=== PATIENT | male | born 1970 | race Caucasian/White ===

== ENCOUNTER 2016-02-12 11:55 | Emergency (ER) | payer BC ==
[2016-02-12 12:09] VITALS: TEMP 98.2; BMI 43.9
[2016-02-12 12:21] LABS: AUTOMATED BASOPHIL 0.5 % (0-2); AUTOMATED LYMPH 18.2 % (17-44); AUTOMATED MONOCYTE 8.3 % (3-10); MPV 7.9 fL (7.4-10.4)
[2016-02-12 12:31] LABS: BLOOD UREA NITROGEN 18 MG/DL (9-20); CALCULATED OSMOLALITY 275 MOs/Kg (270-290); CHLORIDE 104 mEq/L (98-107); GLUCOSE 93 MG/DL (70-99); SODIUM LEVEL 142 mEq/L (137-146); TOTAL PROTEIN 7.2 G/DL (6.3-8.2)
[2016-02-12 12:36] LABS: PARTIAL THROMB. TIME 25.9 SEC (22-35); PT-INR 1.1
--- NOTE | 2016-02-12 14:09 | DIRPT ---
CLINICAL DATA: Midsternal chest pain. EXAM: PORTABLE CHEST 1 VIEW COMPARISON: Chest radiograph 08/28/2012. FINDINGS: Monitoring leads overlie the patient. Stable enlarged cardiac and mediastinal contours. No consolidative pulmonary opacities. No pleural effusion or pneumothorax. Regional skeleton is unremarkable. IMPRESSION: No acute cardiopulmonary process. Electronically Signed By: Tylor Montesinos M.D. On: 02/12/2016 14:06
--- NOTE | 2016-02-12 14:18 | EDPRACDOC ---
- General Information Chief Complaint: Chest Pain Stated Complaint: CHEST PRESSURE Time Seen by Provider: 02/12/16 13:45 Information Source: Patient Mode of Arrival: Car Home Medications: Home Medications CITALOPRAM (anti-depressant) [Celexa] 40 mg PO DAILY 08/28/12 Cyclobenzaprine HCl [Flexeril] 10 mg PO TID #21 tab 02/12/16 Meloxicam [Mobic] 7.5 mg PO BID #20 tab 02/12/16 Allergies/Adverse Reactions: Allergies Allergy/AdvReac Type Severity Reaction Status Date / Time No Known Allergies Allergy Verified 02/12/16 12:08 - History of Present Illness Onset: 1 HOUR HPI: PT PRESENTS TODAY WITH SUDDEN ONSET OF RIGHT SIDED CHEST PAIN THAT RADIATES TO MID STERNUM 4 HOURS AGO. PT STATES HE WAS "JUST SITTING THERE" WHEN THE PAIN OCCURRED. STATES PAIN IS INTERMITTENT, SHARP/STABBING, WORSE WITH MOVEMENT, RADIATES TO STERNAL AREA. PT FOLLOWS A PCP AND HAS YEARLY CHECK UPS, INCLUDING BLOOD WORK. PT TAKE NO MEDICATIONS, DOES NOT SMOKE/DRINK AND STATES HE "THINKS FATHER HAD A SMALL HEART ATTACK AT 65", BUT NO OTHER SIGNIFICANT FAMILY HISTORY. PT DENIES PAIN AT THIS TIME AND DOES NOT APPEAR TO BE IN ANY DISTRESS. Chest Pain Location: Reports: Right Chest Pain Radiation: Reports: Other (STERNUM) Symptoms Occur: Reports: Suddenly, At Rest Cardiac Risk Factors: Reports: Family History Cardiac History of: Reports: None PE Risk Factors: Reports: None Medications within 24 Hours: Reports: None Prehospital Care: Reports: None Pain Came On: Reports: Suddenly Pain Status: Resolved Pain Description: Reports: Sharp Pain Severity: Moderate Pain Worsens With: Reports: Movement Pain Improves With: Reports: Rest Associated Signs and Symptoms: Reports: None ED Past Medical History - History Reviewed Yes Nurses notes reviewed and agree except as marked - Patient Medical History Psychological History: Denies: Depression Surgical History: Reports: Cholecystectomy - Social Medical History Smoking Status: Never smoker EDM Review of Systems - Review of Systems ROS Negative Except as Marked: Yes All systems reviewed and were negative except as marked Constitutional: No Symptoms Reported Respiratory: No Symptoms Reported Cardiovascular: Chest Pain Gastrointestinal: No Symptoms Reported Genitourinary: No Symptoms Reported Neurological: No Symptoms Reported Musculoskeletal: No Symptoms Reported Integumentary: No Symptoms Reported - Physical Exam Constitutional: Alert (Awake), No apparent distress Oriented to: Time, Person, Place Last recorded Vital Signs: Last Vital Signs Temp 98.2 F 02/12/16 12:08 Pulse 71 02/12/16 12:52 Resp 20 02/12/16 12:52 BP 102/67 02/12/16 12:52 Pulse Ox 97 02/12/16 12:52 Oxygen Pulse Oxygen Saturation 97 O2 Device Oxygen Flow Rate Fraction of Inspired Oxygen ( FIO2) - HEENT Head: Normal Eye Exam: Normal Oropharynx: Normal Tympanic Membrane: Normal Neck: Normal, Denies Pain, Midline - Respiratory/Cardiovascular Respiratory: Normal - CTA Cardiovascular: Normal - GI Palpation: Normal Tenderness: Non tender - Musculoskeletal Back: Normal Extremities: Normal - Integumentary Skin: Normal Lymphatics: Normal - Neurologic Cerebellar: Normal Mood Description: Normal Thought: Coherent Perception: Normal ED Chest Pain Exam - Respiratory/Cardiovascular Respiratory: Normal - CTA Cardiovascular/Chest: Normal Radial Pulse: Normal Chest Palpation: Tender, Reproduces Pain - Action ASA given in the ED: No Aspirin therapy held due to: Other-specify below* (NOT CARDIAC) - Results 02/12/16 12:03 02/12/16 12:03 WBC 5.1 xk/uL (3.8-10.8) 02/12/16 12:03 RBC 4.77 xM/uL (4.70-6.10) 02/12/16 12:03 Hgb 14.0 g/dL (14.0-18.0) 02/12/16 12:03 Hct 41.3 % (42-52) L 02/12/16 12:03 MCV 87 fL (80-94) 02/12/16 12:03 MCH 29.3 pg (27-32) 02/12/16 12:03 MCHC 33.8 g/dl (33-36) 02/12/16 12:03 RDW 13.9 % (11.5-14.5) 02/12/16 12:03 Plt Count 184 xk/uL (130-400) 02/12/16 12:03 MPV 7.9 fL (7.4-10.4) 02/12/16 12:03 Neut % (Auto) 69.0 % (45-76) 02/12/16 12:03 Lymph % (Auto) 18.2 % (17-44) 02/12/16 12:03 [place] % (Auto) 8.3 % (3-10) 02/12/16 12:03 Eos % (Auto) 4.0 % (0-5) 02/12/16 12:03 Baso % (Auto) 0.5 % (0-2) 02/12/16 12:03 Absolute Neuts (auto) 3.52 xk/uL (1.7-8.2) 02/12/16 12:03 Absolute Lymphs (auto) 0.92 xk/uL (0.65-4.75) 02/12/16 12:03 PT 10.8 SEC (9.2-11.2) 02/12/16 12:03 INR 1.1 02/12/16 12:03 APTT 25.9 SEC (22-35) 02/12/16 12:03 Sodium 142 mEq/L (137-146) 02/12/16 12:03 Potassium 3.9 mEq/L (3.5-5.1) 02/12/16 12:03 Chloride 104 mEq/L (98-107) 02/12/16 12:03 Carbon Dioxide 26 mMOL/L (22-33) 02/12/16 12:03 Anion Gap 16 mEq/L (8-16) 02/12/16 12:03 BUN 18 MG/DL (9-20) 02/12/16 12:03 Creatinine 0.90 MG/DL (0.66-1.25) 02/12/16 12:03 Estimated GFR (MDRD) > 60 mL/min (>=60) 02/12/16 12:03 Glucose 93 MG/DL (70-99) 02/12/16 12:03 Calculated Osmolality 275 MOs/Kg (270-290) 02/12/16 12:03 Calcium 9.0 MG/DL (8.4-10.2) 02/12/16 12:03 Total Bilirubin 0.6 MG/DL (0.2-1.3) 02/12/16 12:03 AST 29 IU/L (17-59) 02/12/16 12:03 ALT 37 IU/L (21-72) 02/12/16 12:03 Alkaline Phosphatase 73 IU/L (38-126) 02/12/16 12:03 Troponin I < 0.01 ng/mL (<.04) 02/12/16 12:03 [id number] Pept 54 pg/mL (0-450) 02/12/16 12:03 Total Protein 7.2 G/DL (6.3-8.2) 02/12/16 12:03 Albumin 4.1 G/DL (3.5-5.0) 02/12/16 12:03 Lab Results 02/12/16 02/12/16 02/12/16 12:03 12:03 12:03 WBC 5.1 RBC 4.77 Hgb 14.0 Hct 41.3 L MCV 87 MCH 29.3 MCHC 33.8 RDW 13.9 Plt Count 184 MPV 7.9 Neut % (Auto) 69.0 Lymph % (Auto) 18.2 [place] % (Auto) 8.3 Eos % (Auto) 4.0 Baso % (Auto) 0.5 Absolute Neuts (auto) 3.52 Absolute Lymphs (auto) 0.92 PT 10.8 INR 1.1 APTT 25.9 Sodium 142 Potassium 3.9 Chloride 104 Carbon Dioxide 26 Anion Gap 16 BUN 18 Creatinine 0.90 Estimated GFR (MDRD) > 60 Glucose 93 Calculated Osmolality 275 Calcium 9.0 Total Bilirubin 0.6 AST 29 ALT 37 Alkaline Phosphatase 73 Troponin I < 0.01 [id number]-Xoqalkkobab Pept 54 Total Protein 7.2 Albumin 4.1 Laboratory Results - last 24 hr 02/12/16 02/12/16 02/12/16 12:03 12:03 12:03 WBC 5.1 RBC 4.77 Hgb 14.0 Hct 41.3 L MCV 87 MCH 29.3 MCHC 33.8 RDW 13.9 Plt Count 184 MPV 7.9 Neut % (Auto) 69.0 Lymph % (Auto) 18.2 [place] % (Auto) 8.3 Eos % (Auto) 4.0 Baso % (Auto) 0.5 Absolute Neuts (auto) 3.52 Absolute Lymphs (auto) 0.92 PT 10.8 INR 1.1 APTT 25.9 Sodium 142 Potassium 3.9 Chloride 104 Carbon Dioxide 26 Anion Gap 16 BUN 18 Creatinine 0.90 Estimated GFR (MDRD) > 60 Glucose 93 Calculated Osmolality 275 Calcium 9.0 Total Bilirubin 0.6 AST 29 ALT 37 Alkaline Phosphatase 73 Troponin I < 0.01 Dpd-[id number]-Ywpuezkxohq Pept 54 Total Protein 7.2 Albumin 4.1 Laboratory Results 02/12/16 12:03 02/12/16 12:03 - EKG EKG #1 EKG Time: 12:03 -: Yes EKG interpreted by me Rate: bpm: 70 [place]: Normal Rhythm: NSR Block: None Hypertrophy: None ST: Normal Decision Time to Discharge: 14:21 - Departure Disposition: Home Condition: Good Final Diagnosis: Chest wall pain Instructions: Chest Pain (ED), Chest Wall Pain Education/Counseling Given To: Patient Education/Counseling Given Regarding: Diagnosis, Treatment, Follow Up Referrals: Fili Gibson II, MD [Primary Care Provider] - One Week Prescriptions: Cyclobenzaprine HCl [Flexeril] 10 mg PO TID #21 tab Meloxicam [Mobic] 7.5 mg PO BID #20 tab Additional Instructions: REST AND PLENTY OF WATER. FOLLOW UP WITH PCP IF NEEDED, OR FEEL FREE TO RETURN TO ED FOR ANY WORSE/CONCERNING SYMPTOMS.
[2016-02-12 14:33] VITALS: BP 113/71; PULSE 66
== END 2016-02-12 14:32 | disposition home or self-care (01) ==
LOC: ED 11:55
DX: R07.89 Other chest pain (principal)
CPT/HCPCS: 36415; 71010; 80053; 83880; 84484; 85025; 85610; 85730; 93005; 99283